=== PATIENT | male | born 1965 | race Caucasian/White ===

== ENCOUNTER 2021-12-19 18:08 | Inpatient (IN) | payer SELFPAY ==
[2021-12-19 18:57] VITALS: BMI 26.8
[2021-12-19] MEDS ORDERED: Ondansetron PF 4 MG/2 ML Vial IVP PRN ×2 (19:13→19:15)
[2021-12-19] MEDS ORDERED: Ondansetron ODT 4 MG TAB SL PRN (19:15)
[2021-12-19] MEDS ORDERED: Acetaminophen 325 MG TAB PO PRN (19:15)
[2021-12-19] MEDS ORDERED: Dextrose 5% in Water 1,000 ML IV PRN (19:19)
[2021-12-19] MEDS ORDERED: Dextrose 50% Abboject 50 ML SYRINGE SLOW IVP PRN (19:19)
[2021-12-19 19:25] LABS: SARS-CoV-2 NAA Rapid Test Not Detected (NotDetected)
[2021-12-19 20:21] LABS: Troponin I 3.435 ng/mL (< 0.028)
[2021-12-19] MEDS ORDERED: Nitroglycerin 0.4 MG TAB (25 Tab Bottle) SL PRN (21:09)
[2021-12-19] MEDS ORDERED: Enoxaparin Sodium 80 MG/0.8 ML SYRINGE SC SCH (21:15)
[2021-12-19 23:05] LABS: Critical Call Chem Troponin I 2NO.AI; Troponin I 3.111 ng/mL (< 0.028)
[2021-12-20 04:16] LABS: Hemoglobin A1c 7.8 % (4.0-6.0)
[2021-12-20 04:24] LABS: #Basophils 0.1 thou/uL (0.0-0.2); #Eosinphils 0.2 thou/uL (0.0-0.7); #Lymphocytes 3.4 thou/uL (1.20-3.40); #Monocytes 0.7 thou/uL (0.11-0.59); #Neutrophils 4.2 thou/uL (1.40-6.50); %Eosinophils 2.4 % (0.0-10.0); %Lymphocytes 39.4 % (21.0-51.0); %Monocytes 8.6 % (0.0-10.0); %Neutrophils 48.6 % (42.0-75.0); Hemoglobin 13.7 g/dL (14.0-18.0); Mean Corpuscular HGB CONC 34.2 g/dL (32.0-36.0); Mean Corpuscular Hemoglobin 32.4 pg (27.0-31.0); Mean Corpuscular Volume 94.9 fL (78.0-98.0); Mean Platelet Volume 7.8 fL (7.4-10.4); Platelet Count 270 thou/uL (130-400); RBC Distribution Width 12.1 % (11.5-14.5); Red Blood Cell (RBC) Count 4.22 mill/uL (4.70-6.10); White Blood Cell (WBC) Count 8.6 thou/uL (4.8-10.8)
[2021-12-20 04:45] LABS: Anion Gap 15 mmol/L (10-20); BUN (Urea Nitrogen) 19 mg/dL (8.4-25.7); Calc. Creatinine Clearance 71 mL/min (70-130); Calcium 9.3 mg/dL (7.8-10.44); Carbon Dioxide 24 mmol/L (22-29); Chloride 102 mmol/L (98-107); Cholesterol 232 mg/dl (< 200 Desired); Estimated GFR 60; Glucose 175 mg/dL (70-105); HDL Cholesterol 33 mg/dL (>60 Neg Risk); LDL Cholesterol, Calculated 132 mg/dL; Potassium 3.6 mmol/L (3.5-5.1); Sodium 137 mmol/L (136-145); Triglycerides 333 mg/dL (Less than 150)
[2021-12-20] MEDS: Furosemide 40 MG/4 ML VIAL SLOW IVP SCH ×2 (06:07→14:03)
[2021-12-20] MEDS ORDERED: Heparin 5,000 UNITS/ML VIAL SC SCH (09:00)
[2021-12-20] MEDS ORDERED: Clopidogrel Bisulfate 300 MG TAB PO SCH (10:30)
[2021-12-20] MEDS: Aspirin 81 mg Enteric Coated Tablet PO SCH (10:52)
[2021-12-20] MEDS ORDERED: Enoxaparin Sodium 80 MG/0.8 ML SYRINGE SC SCH (11:00)
[2021-12-20 14:31] LABS: Amphetamine Not Detected (NotDetected); Barbiturates Screen Not Detected (NotDetected); Benzodiazepine Screen Not Detected (NotDetected); Cocaine Metabolite Screen Not Detected (NotDetected); Methadone Not Detected (NotDetected); Methamphetamine Not Detected (NotDetected); Opiate Screen Not Detected (NotDetected); Oxycodone Screen Not Detected (NotDetected); Phencyclidine (PCP) Not Detected (NotDetected); THC/Cannabinoid Screen Not Detected (NotDetected); Tricyclic Screen Not Detected (NotDetected)
[2021-12-20] MEDS: Carvedilol 3.125 MG TAB PO SCH (17:10)
[2021-12-20] MEDS: Lisinopril 2.5 MG TAB PO SCH (20:19)
[2021-12-20] MEDS: Heparin 5,000 UNITS/ML VIAL SC SCH (20:19)
[2021-12-20] MEDS: Rosuvastatin 20 MG TAB PO SCH (20:19)
[2021-12-20] MEDS ORDERED: Atorvastatin Calcium 40 MG TAB PO SCH (21:00)
[2021-12-21 04:28] LABS: #Basophils 0.1 thou/uL (0.0-0.2); #Eosinphils 0.3 thou/uL (0.0-0.7); #Lymphocytes 3.6 thou/uL (1.20-3.40); %Basophils 0.7 % (0.0-1.0); %Eosinophils 2.8 % (0.0-10.0); %Monocytes 8.8 % (0.0-10.0); %Neutrophils 54.8 % (42.0-75.0); Hemoglobin 15.3 g/dL (14.0-18.0); Mean Corpuscular HGB CONC 33.6 g/dL (32.0-36.0); Mean Corpuscular Hemoglobin 32.4 pg (27.0-31.0); Mean Corpuscular Volume 96.4 fL (78.0-98.0); Mean Platelet Volume 7.7 fL (7.4-10.4); Platelet Count 298 thou/uL (130-400); RBC Distribution Width 11.9 % (11.5-14.5); Red Blood Cell (RBC) Count 4.71 mill/uL (4.70-6.10); White Blood Cell (WBC) Count 10.9 thou/uL (4.8-10.8)
[2021-12-21 04:47] LABS: Anion Gap 15 mmol/L (10-20); BUN (Urea Nitrogen) 26 mg/dL (8.4-25.7); Calc. Creatinine Clearance 60 mL/min (70-130); Calcium 9.7 mg/dL (7.8-10.44); Carbon Dioxide 28 mmol/L (22-29); Chloride 98 mmol/L (98-107); Estimated GFR 52; Glucose 175 mg/dL (70-105); Sodium 137 mmol/L (136-145)
[2021-12-21] MEDS: Furosemide 40 MG/4 ML VIAL SLOW IVP SCH (05:38)
[2021-12-21] MEDS: HumaLOG 300 UNITS/3 ML VIAL SC PRN ×2 (05:39→21:00)
[2021-12-21] MEDS: Clopidogrel Bisulfate 75 MG TAB PO SCH (10:03)
[2021-12-21] MEDS: Heparin 5,000 UNITS/ML VIAL SC SCH ×3 (10:03→20:59)
[2021-12-21] MEDS: Lisinopril 2.5 MG TAB PO SCH ×2 (10:03→21:00)
[2021-12-21] MEDS: Aspirin 81 mg Enteric Coated Tablet PO SCH (10:03)
[2021-12-21] MEDS: Furosemide 20 MG TAB PO SCH (14:39)
[2021-12-21] MEDS: Carvedilol 3.125 MG TAB PO SCH ×2 (15:16→16:35)
[2021-12-21] MEDS: Rosuvastatin 20 MG TAB PO SCH (20:59)
[2021-12-22] MEDS: Acetaminophen 325 MG TAB PO PRN ×3 (01:14→21:15)
[2021-12-22 04:30] LABS: #Basophils 0.1 thou/uL (0.0-0.2); #Eosinphils 0.3 thou/uL (0.0-0.7); #Lymphocytes 3.9 thou/uL (1.20-3.40); #Monocytes 0.9 thou/uL (0.11-0.59); %Basophils 0.8 % (0.0-1.0); %Eosinophils 3.3 % (0.0-10.0); %Lymphocytes 38.4 % (21.0-51.0); %Monocytes 8.4 % (0.0-10.0); Mean Corpuscular Hemoglobin 32.4 pg (27.0-31.0); Mean Corpuscular Volume 95.3 fL (78.0-98.0); Mean Platelet Volume 7.8 fL (7.4-10.4); Platelet Count 292 thou/uL (130-400); RBC Distribution Width 11.8 % (11.5-14.5); Red Blood Cell (RBC) Count 4.33 mill/uL (4.70-6.10); White Blood Cell (WBC) Count 10.2 thou/uL (4.8-10.8)
[2021-12-22 04:55] LABS: Anion Gap 14 mmol/L (10-20); BUN (Urea Nitrogen) 29 mg/dL (8.4-25.7); Calc. Creatinine Clearance 61 mL/min (70-130); Calcium 9.5 mg/dL (7.8-10.44); Carbon Dioxide 27 mmol/L (22-29); Chloride 97 mmol/L (98-107); Estimated GFR 53; Glucose 208 mg/dL (70-105); Potassium 4.1 mmol/L (3.5-5.1); Sodium 134 mmol/L (136-145)
[2021-12-22] MEDS: HumaLOG 300 UNITS/3 ML VIAL SC PRN ×2 (05:49→21:19)
[2021-12-22] MEDS: Heparin 5,000 UNITS/ML VIAL SC SCH ×3 (09:41→21:15)
[2021-12-22] MEDS: Furosemide 20 MG TAB PO SCH ×2 (09:43→14:57)
[2021-12-22] MEDS: Clopidogrel Bisulfate 75 MG TAB PO SCH (09:43)
[2021-12-22] MEDS: Carvedilol 3.125 MG TAB PO SCH ×2 (09:43→17:00)
[2021-12-22] MEDS: Aspirin 81 mg Enteric Coated Tablet PO SCH (09:43)
[2021-12-22] MEDS: Lisinopril 2.5 MG TAB PO SCH ×2 (09:43→21:15)
[2021-12-22] MEDS: Rosuvastatin 20 MG TAB PO SCH (21:15)
[2021-12-22] MEDS ORDERED: Nicotine 21 MG PATCH TD SCH (22:00)
[2021-12-23] MEDS: Acetaminophen 325 MG TAB PO PRN (03:29)
[2021-12-23] MEDS: HumaLOG 300 UNITS/3 ML VIAL SC PRN ×2 (05:38→20:28)
[2021-12-23] MEDS: Furosemide 20 MG TAB PO SCH ×2 (08:53→14:03)
[2021-12-23] MEDS: Heparin 5,000 UNITS/ML VIAL SC SCH ×3 (08:53→20:31)
[2021-12-23] MEDS: Clopidogrel Bisulfate 75 MG TAB PO SCH (08:53)
[2021-12-23] MEDS: Lisinopril 2.5 MG TAB PO SCH ×2 (08:54→20:27)
[2021-12-23] MEDS: Aspirin 81 mg Enteric Coated Tablet PO SCH (08:54)
[2021-12-23] MEDS: Carvedilol 3.125 MG TAB PO SCH ×2 (08:54→17:29)
[2021-12-23] MEDS ORDERED: Lacosamide 200 MG in Sodium Chloride 0.9% 50 ML IVPB SCH (11:15)
[2021-12-23] MEDS: Rosuvastatin 20 MG TAB PO SCH (20:26)
[2021-12-23] MEDS ORDERED: Melatonin 3 MG TAB PO PRN (21:16)
[2021-12-24] MEDS: HumaLOG 300 UNITS/3 ML VIAL SC PRN ×4 (05:52→20:12)
[2021-12-24] MEDS: Furosemide 20 MG TAB PO SCH ×2 (08:21→14:50)
[2021-12-24] MEDS: Clopidogrel Bisulfate 75 MG TAB PO SCH (08:21)
[2021-12-24] MEDS: Heparin 5,000 UNITS/ML VIAL SC SCH ×3 (08:21→20:10)
[2021-12-24] MEDS: Aspirin 81 mg Enteric Coated Tablet PO SCH (08:21)
[2021-12-24] MEDS: Lisinopril 2.5 MG TAB PO SCH ×2 (08:25→20:11)
[2021-12-24] MEDS: Carvedilol 3.125 MG TAB PO SCH ×2 (08:25→17:34)
[2021-12-24 19:34] VITALS: BP 114/68; TEMP 98.3
[2021-12-24] MEDS: Rosuvastatin 20 MG TAB PO SCH (20:10)
== END 2021-12-24 21:26 | disposition home or self-care (01) | DRG 280 ==
LOC: 2NO 18:08
PROVIDERS: ADMIT Internal Medicine; ATTEND Internal Medicine
DX: I13.0 Hypertensive heart and chronic kidney disease with heart failure and stage 1 through stage 4 chronic kidney disease, or unspecified chronic kidney disease (principal); I50.23 Acute on chronic systolic (congestive) heart failure; I21.A1 Myocardial infarction type 2; I48.20 Chronic atrial fibrillation, unspecified; N17.9 Acute kidney failure, unspecified; I25.10 Atherosclerotic heart disease of native coronary artery without angina pectoris; Z20.822 Contact with and (suspected) exposure to COVID-19; F17.210 Nicotine dependence, cigarettes, uncomplicated; E78.2 Mixed hyperlipidemia; N18.9 Chronic kidney disease, unspecified; E11.22 Type 2 diabetes mellitus with diabetic chronic kidney disease; Z95.1 Presence of aortocoronary bypass graft; Z90.49 Acquired absence of other specified parts of digestive tract; Z98.890 Other specified postprocedural states; Z82.49 Family history of ischemic heart disease and other diseases of the circulatory system; Z91.14 Patient's other noncompliance with medication regimen; Z79.899 Other long term (current) drug therapy
CPT/HCPCS: 36415; 36416; 80048; 80061; 80306; 83036; 85025; 93306; 93923; J1644; J1650; J1815; J1940; U0002